=== PATIENT | male | born 1960 | race Caucasian/White ===

== ENCOUNTER 2017-11-26 21:58 | Inpatient (IN) | END 2017-12-07 15:45 | disposition home health service (06) | DRG 57 ==

== ENCOUNTER 2018-02-27 00:30 | Observation (INO) | END 2018-03-02 16:39 | disposition home or self-care (01) ==

== ENCOUNTER 2018-06-15 05:54 | Inpatient (IN) | payer OTHER ==
[~2018-06-15] VITALS: Ht 175.3 cm; Wt 91.0 kg
[2018-06-15] VITALS (7 sets, daily range): BP systolic 111–136; BP diastolic 63–77; PULSE 59–74; RESP 18; Ht 175.3 cm; Wt 91.0 kg
[~2018-06-15 05:54] MED LIST: AMLO-147 PO; ATOR20TA38 PO; COU10 PO; ENOX100D2 SC; LISI10TA2 PO
--- NOTE | 2018-06-15 06:36 | ERD ---
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 Pain is constant nonradiating and nonexertional and he has difficulty describing it further. He denies previous episodes but does have a history of right MCA stroke, CAD, and descending thoracic aortic aneurysm. Patient denies fevers or chills, no vomiting or diarrhea, no headache or blurry vision, no abdominal pain. ROS All systems reviewed and are negative except as per history of present illness. Medications Home Meds Active Scripts Amlodipine Besylate* (Amlodipine Besylate*) 10 Mg Tablet, 10 MG PO DAILY, #30 TAB Prov:KIRILL MONTGOMERY 03/02/18 Reported Medications Warfarin Sodium* (Coumadin*) 3 Mg Tablet, 3 MG PO ALTERNATE WITH 4MG, TAB 06/15/18 Warfarin Sodium* (Warfarin Sodium*) 4 Mg Tablet, 4 MG PO ALTERNATE WITH 3MG, TAB 06/15/18 Atorvastatin* (Atorvastatin*) 80 Mg Tablet, 80 MG PO QHS, #30 TAB 06/15/18 Discontinued Scripts Warfarin Sodium (Coumadin) 10 Mg Tablet, 7 MG PO DAILY@17, #3 TAB Prov:KIRILL MONTGOMERY 03/02/18 Enoxaparin Sodium (Enoxaparin Sodium) 100 Mg/1 Ml Syringe, 95 MG SC Q12, #2 SYR Prov:KIRILL MONTGOMERY 03/02/18 Atorvastatin Calcium* (Atorvastatin Calcium*) 20 Mg Tablet, 20 MG PO QHS, #30 TAB Prov:KIRILL MONTGOMERY 03/02/18 Lisinopril* (Lisinopril*) 10 Mg Tablet, 10 MG PO DAILY, #30 TAB Prov:KIRILL MONTGOMERY 03/02/18 Allergies Allergies: Coded Allergies: No Known Allergy (Unverified , 06/15/18) PMhx/Soc CAD, hypertension, right MCA stroke with left-sided paresis, a descending thoracic aortic aneurysm, mechanical aortic valve currently anticoagulated with warfarin History of Surgery: Yes (CABG 1995, stents) Anesthesia Reaction: No Hx Neurological Disorder: Yes (intraventricular hemorrahage, stroke) Hx Respiratory Disorders: Yes (aspiration PNA) Hx Cardiac Disorders: Yes (CAD, HLD, DLP) Hx Psychiatric Problems: No Hx Miscellaneous Medical Probl: No Hx Alcohol Use: No Hx Substance Use: No Hx Tobacco Use: No FmHx Family History: No diabetes Physical Exam Vitals Vital Signs Date Temp Pulse Resp B/P (MAP) Pulse Ox O2 O2 Flow FiO2 Time Delivery Rate 06/15/18 96.9 73 20 134/77 100 06:03 (96) Physical Exam Const: No acute distress, afebrile Head: Atraumatic Eyes: Normal Conjunctiva ENT: Normal External Ears, Nose and Mouth. Neck: Full range of motion. No meningismus. Resp: Clear to auscultation bilaterally Cardio: Regular rate and rhythm, no murmurs Abd: Soft, non tender, non distended. Skin: No petechiae or rashes Back: No midline or flank tenderness Ext: No cyanosis, or edema Neur: Awake and alert x3, left upper and lower extremity paresis moving all extremities, pupils equal round reactive to light Psych: Normal Mood and Affect Result Diagram: 06/15/1839 06/15/1839 Results 24 hrs Laboratory Tests Test 06/15/18 06:39 White Blood Count 4.4 10^3/ul Red Blood Count 4.71 10^6/ul Hemoglobin 14.2 g/dl Hematocrit 41.7 % Mean Corpuscular Volume 88.5 fl Mean Corpuscular Hemoglobin 30.1 pg Mean Corpuscular Hemoglobin Concent 34.1 g/dl Red Cell Distribution Width 12.6 % Platelet Count 171 10^3/UL Mean Platelet Volume 8.7 fl Immature Granulocytes % 0.000 % Neutrophils % 61.8 % Lymphocytes % 23.3 % Monocytes % 13.0 % Eosinophils % 1.4 % Basophils % 0.5 % Nucleated Red Blood Cells % 0.0 /100WBC Immature Granulocytes # 0.000 10^3/ul Neutrophils # 2.7 10^3/ul Lymphocytes # 1.0 10^3/ul Monocytes # 0.6 10^3/ul Eosinophils # 0.1 10^3/ul Basophils # 0.0 10^3/ul Nucleated Red Blood Cells # 0.0 10^3/ul Prothrombin Time 24.6 Sec Prothrombin Time Ratio 1.9 INR International Normalized Ratio 2.21 Activated Partial Thromboplast Time 36.6 Sec Sodium Level 135 mmol/L Potassium Level 4.1 mmol/L Chloride Level 96 mmol/L Carbon Dioxide Level 32 mmol/L Anion Gap 7 Blood Urea Nitrogen 13 mg/dl Creatinine 0.86 mg/dl Est Glomerular Filtrat Rate mL/min > 60 mL/min Glucose Level 105 mg/dl Calcium Level 9.0 mg/dl Total Bilirubin 0.5 mg/dl Direct Bilirubin 0.00 mg/dl Indirect Bilirubin 0.5 mg/dl Aspartate Amino Transf (AST/SGOT) 32 IU/L Alanine Aminotransferase (ALT/SGPT) 45 IU/L Alkaline Phosphatase 69 IU/L Troponin I < 0.012 ng/ml Total Protein 7.8 g/dl Albumin 4.4 g/dl Globulin 3.40 g/dl Albumin/Globulin Ratio 1.29 Lipase 83 U/L Current Medications Medications Dose Sig/Vincent Start Time Status Last (Trade) Ordered Route PRN Stop Time Admin Dose Reason Admin Sodium 1,000 ml @ Q1H STAT 06/15/18 DC 06/15/18 Chloride 1,000 mls/hr IV 06:40 07:20 06/15/18 07:39 Morphine 4 mg ONCE STAT 06/15/18 DC Sulfate IV 06:40 (morphine) 06/15/18 06:55 Ondansetron 4 mg ONCE STAT 06/15/18 DC HCl (Zofran IV 06:40 Inj) 06/15/18 06:55 IV Flush 10 ml STK-MED 06/15/18 DC 06/15/18 (NS 10 ml) ONCE .ROUTE 07:40 08:06 06/15/18 07:41 Sodium 100 ml @ ud STK-MED 06/15/18 DC 06/15/18 Chloride ONCE .ROUTE 07:40 08:06 06/15/18 07:41 Iohexol 100 ml @ ud STK-MED 06/15/18 DC 06/15/18 ONCE .ROUTE 07:40 08:07 06/15/18 07:41 Procedures/MDM IV line was established patient was placed on hall monitor rhythm strip revealed a sinus rhythm at about 70 bpm with upright P and T waves. Patient was afebrile EKG performed, read by me revealed a normal sinus rhythm at 65 bpm, left axis deviation, first-degree AV block, right ventricular conduction delay QRS duration 116 ms, no concerning ST elevations or depressions noted. I administered 1 L normal saline IV, morphine 4 mg IV, Zofran 4 mg IV Chest X-ray 1V Interpreted by me: Soft Tissue: No acute abnormalities Bones: No acute abnormalities Mediastinum/Cardiac Silhouette/Lungs: No acute abnormalities CT scan of the chest with IV contrast was performed, IMPRESSION: 1. Aneurysmal dilatation of the ascending thoracic aorta, maximal diameter 5.9 cm proximal to the origin of the right brachial cephalic artery. Tapered narrowing of the aorta at the arch which measures 3.2 cm diameter. No significant dilatation of the descending aorta. 2. Negative for dissection. 3. Moderate burden atherosclerotic plaque at the aortic arch. 4. Mild cardiomegaly. Heterogeneous ground-glass density in the bilateral lower lobes may indicate mild edema. CBC and electrolytes were normal, liver function tests were normal, troponin was negative Patient will be admitted to telemetry setting for continued medical management and cardiology consultation Departure Diagnosis: Primary Impression: Chest pain Chest pain type: unspecified Qualified Codes: R07.9 - Chest pain, unspecified Additional Impression: Thoracic aortic aneurysm Presence of rupture: without rupture Qualified Codes: I71.2 - Thoracic aortic aneurysm, without rupture Condition: CHAD Cadet MD Jun 15, 2018 06:36
[2018-06-15] MEDS ORDERED: ONDANSETRON 4 MG INJ IV STA (06:40)
[2018-06-15] MEDS ORDERED: morphine 4 MG/ML VIAL IV STA (06:40)
[2018-06-15] MEDS ORDERED: SOD CHLORIDE 0.9% 1,000 ML IV STA (06:40)
[2018-06-15] MEDS ORDERED: ATOR-2 PO (07:25)
[2018-06-15] MEDS ORDERED: WARF4TAB64 PO (07:26)
[2018-06-15] MEDS ORDERED: WARF3TAB PO (07:27)
[2018-06-15] MEDS ORDERED: SOD CHLORIDE 0.9% 100 ML ONE (07:40)
[2018-06-15] MEDS ORDERED: IOHEXOL 100 ML ONE (07:40)
--- NOTE | 2018-06-15 08:08 | NUR ---
Procedure Ordered:CTA CHEST Reason for Exam Today:THORACIC AORTIC ANEURYSM Previous Exams: Allergies:NKDA Current Medications Taken: Glucophage ( ) Metformin ( ) Previous reaction to contrast media: Yes ( ) No ( X) : Yes ( ) No (X ) Asthma: Yes ( ) No (X ) Diabetes: Yes ( ) No (X ) Myeloma: Yes ( ) No ( X) Heart Disease: Yes ( X) No ( ) Cardiac Disease: Yes ( X) No ( ) Kidney Disease: Yes ( ) No ( X) Vascular Disease: Yes ( X) No ( ) Patient Teaching done: Yes ( ) No ( ) Pump Service Supervisor Used: Yes ( ) No ( ) Name of Pump Service Supervisor: Language Used: As part of the test requested by your doctor, contrast media may be injected into your vein while the x-rays are being taken. Occasionally, reactions from IV contrast may occur. The physician and staff of this hospital are trained to treat these reactions. Select the type of Contrast that will be given to patient: Isovue 300 ( ) Isovue 370 ( ) Visipaque ( ) Cystografin ( ) OMNIPAQUE 350 (X) Gastrographin ( ) Redi-cat ( ) Volumen ( ) Amount of contrast to be given: 100CC IV (X ) PO ( ) Date given:06/15/18 Lab Values: BUN: 13 Creatinine:0.86 Reason why contrast cannot be given: Location of patient pre-procedure:[facility] 18 Location of patient post procedure:[facility] 18 PT TOLERATED IV CONTRAST INJECTION WELL
--- NOTE | 2018-06-15 11:43 | HP ---
Date/Time of Note Date/Time of Note DATE: 06/15/18 TIME: 11:43 Assessment/Plan VTE Prophylaxis Pharmacological prophylaxis: warfarin tx Lines/Catheters IV Catheter Type (from [facility]): [facility] Assessment/Plan Hospital Course 58-year-old male with past medical history of aortic valve replacement, dyslipidemia, hypertension, right MCA infarct with right frontal lobe hemorrhage, and ascending aortic aneurysm who came to the emergency room with chief complaint of chest pain, who will be admitted to inpatient setting for further treatment and evaluation. 1. Chest pain. -Will rule out ACS. -Ruled out for any aortic dissection. -Continue anticoagulation with Coumadin. -Await cardiology evaluation. 2. Status post mechanical aortic valve replacement. -INR therapeutic. -Continue Coumadin. 3. Ascending thoracic aortic aneurysm. -Continue optimal blood pressure control. 4. S/P right MCA territory stroke. -Continue statins. 5. Hypertension. -Continue antihypertensives. 6. Obesity. -BMI greater than 32 kg/m. -Will advise weight reduction. Plan: The patient will be admitted to inpatient telemetry floor. The patient will be started on a low-cholesterol diet. The patient will remain a full code. Activities will be as tolerated. The rest of the patient's management will be based on the clinical course, inputs from consultants, and the results of diagnostic studies. Based on the patient's clinical presentation, he most probably requires at least 1 midnight's stay for further management and evaluation of his clinical presentation. The patient was seen in collaboration with Dr. Lanza. Result Diagram: 06/15/18 0639 06/15/18 0639 Results 24hrs Laboratory Tests Test 06/15/18 06:39 White Blood Count 4.4 L Red Blood Count 4.71 Hemoglobin 14.2 Hematocrit 41.7 L Mean Corpuscular Volume 88.5 Mean Corpuscular Hemoglobin 30.1 Mean Corpuscular Hemoglobin Concent 34.1 Red Cell Distribution Width 12.6 Platelet Count 171 Mean Platelet Volume 8.7 Immature Granulocytes % 0.000 L Neutrophils % 61.8 Lymphocytes % 23.3 Monocytes % 13.0 H Eosinophils % 1.4 Basophils % 0.5 Nucleated Red Blood Cells % 0.0 Immature Granulocytes # 0.000 Neutrophils # 2.7 Lymphocytes # 1.0 Monocytes # 0.6 Eosinophils # 0.1 Basophils # 0.0 Nucleated Red Blood Cells # 0.0 Prothrombin Time 24.6 H Prothrombin Time Ratio 1.9 INR International Normalized Ratio 2.21 Activated Partial Thromboplast Time 36.6 H Sodium Level 135 Potassium Level 4.1 Chloride Level 96 L Carbon Dioxide Level 32 H Anion Gap 7 Blood Urea Nitrogen 13 Creatinine 0.86 Est Glomerular Filtrat Rate mL/min > 60 Glucose Level 105 Calcium Level 9.0 Total Bilirubin 0.5 Direct Bilirubin 0.00 Indirect Bilirubin 0.5 Aspartate Amino Transf (AST/SGOT) 32 Alanine Aminotransferase (ALT/SGPT) 45 Alkaline Phosphatase 69 Troponin I < 0.012 Total Protein 7.8 Albumin 4.4 Globulin 3.40 H Albumin/Globulin Ratio 1.29 Lipase 83 HPI/ROS Admit Date/Time Admit Date/Time Hx of Present Illness This is a 58-year-old male with past medical history of aortic valve replacement, dyslipidemia, essential hypertension, right MCA infarct with right frontal lobe hemorrhage, and ascending aortic aneurysm, who came to the emergency room with chief complaint of chest pain. The patient relates that the pain woke him up from sleep at 4 AM in the morning. The patient verbalized the pain as substernal with no radiation. The patient rated the pain as 5/10. There was no associated diaphoresis. The patient was complaining of palpitations. The patient denied any dyspnea. The patient denied any fevers, chills, or cough. The patient verbalized that he has been compliant with all his medications. The patient recently had a left heart catheterization at [facility] by . The patient also follows up with her DrJudith Danielle apparently for his aortic aneurysm. In the emergency room, the patient's initial troponins were negative. The patient's chest x-ray was essentially negative. The patient underwent a CT chest angiogram that was negative for any dissection. However, it showed aneurysmal dilation of the ascending thoracic aorta with maximal diameter of 5.9 cm. ROS Constitutional: no complaints Eyes: no complaints ENT: no complaints Respiratory: no complaints Cardiovascular: chest pain, palpitations Gastrointestinal: no complaints Genitourinary: no complaints Musculoskeletal: no complaints Skin: no complaints Neurologic: no complaints Endocrine: no complaints Lymphatic: no complaints Psychological: no complaints Immunologic: no complaints PMH/Family/Social Past Medical History 1. Right MCA infarct with right frontal lobe hemorrhage. 2. Dyslipidemia. 3. Hypertension. 4. Ascending aortic aneurysm. Coded Allergies: No Known Allergy (Unverified , 06/15/18) Past Surgical History 1. Aortic valve replacement with open heart surgery. 2. Percutaneous coronary intervention with stent placement. Family History Significant Family History: no pertinent family hx Social History Alcohol Use: none Smoking Status: Never smoker Drug Use: none Exam/Review of Systems Vital Signs Vitals Vital Signs Date Temp Pulse Resp B/P (MAP) Pulse Ox O2 O2 Flow FiO2 Time Delivery Rate 06/15/18 97.0 59 20 104/65 100 Room Air 09:15 (78) Exam Exam General: Obese, 58 year-old male lying in bed in no apparent distress. HEENT: Normocephalic, atraumatic. Eyes: Anicteric sclerae, conjunctivae clear. ENT: Nasal septum midline, oral mucosa moist. Neck supple. Respiratory: Bilaterally clear breath sounds. No use of accessory muscles of respiration. No adventitious breath sounds. Cardiovascular: S1, S2 heard. Regular rate and rhythm. Audible click from mechanical valve. Abdomen: Soft, nontender, and nondistended. Bowel sounds positive in all 4 quadrants. Genitourinary: Deferred. Extremities: No cyanosis, no clubbing, no edema. Peripheral pulses palpable. Neurologic: Cranial nerves II through XII grossly intact. The patient is awake, alert, and oriented. Skin: Normal skin turgor. No skin rashes. Additional Comments CTPA IMPRESSION: 1. Aneurysmal dilatation of the ascending thoracic aorta, maximal diameter 5.9 cm proximal to the origin of the right brachial cephalic artery. Tapered narrowing of the aorta at the arch which measures 3.2 cm diameter. No significant dilatation of the descending aorta. 2. Negative for dissection. 3. Moderate burden atherosclerotic plaque at the aortic arch. 4. Mild cardiomegaly. Heterogeneous ground-glass density in the bilateral lower lobes may indicate mild edema. DIANA RIVERA NP Jun 15, 2018 11:43
[2018-06-15] MEDS ORDERED: ACETAMINOPHEN 325 MG TAB PO PRN (12:30)
[2018-06-15] MEDS ORDERED: NACL 0.9% 3 ML SYG IV SCH (12:30)
[2018-06-15] MEDS ORDERED: HYDROCODONE/APAP (5/325) TAB PO PRN (12:30)
[2018-06-15] MEDS ORDERED: ONDANSETRON 4 MG INJ IV PRN (12:30)
--- NOTE | 2018-06-15 13:01 | CONS ---
Assessment/Plan Assessment/Plan Assessment/Plan Con't r/o Mi protocol - add asa 81 - ECHO to follow. # [id number] Result Diagram: 06/15/18 0639 06/15/18 0639 Results 24hrs Laboratory Tests Test 06/15/18 06:39 White Blood Count 4.4 L Red Blood Count 4.71 Hemoglobin 14.2 Hematocrit 41.7 L Mean Corpuscular Volume 88.5 Mean Corpuscular Hemoglobin 30.1 Mean Corpuscular Hemoglobin Concent 34.1 Red Cell Distribution Width 12.6 Platelet Count 171 Mean Platelet Volume 8.7 Immature Granulocytes % 0.000 L Neutrophils % 61.8 Lymphocytes % 23.3 Monocytes % 13.0 H Eosinophils % 1.4 Basophils % 0.5 Nucleated Red Blood Cells % 0.0 Immature Granulocytes # 0.000 Neutrophils # 2.7 Lymphocytes # 1.0 Monocytes # 0.6 Eosinophils # 0.1 Basophils # 0.0 Nucleated Red Blood Cells # 0.0 Prothrombin Time 24.6 H Prothrombin Time Ratio 1.9 INR International Normalized Ratio 2.21 Activated Partial Thromboplast Time 36.6 H Sodium Level 135 Potassium Level 4.1 Chloride Level 96 L Carbon Dioxide Level 32 H Anion Gap 7 Blood Urea Nitrogen 13 Creatinine 0.86 Est Glomerular Filtrat Rate mL/min > 60 Glucose Level 105 Calcium Level 9.0 Total Bilirubin 0.5 Direct Bilirubin 0.00 Indirect Bilirubin 0.5 Aspartate Amino Transf (AST/SGOT) 32 Alanine Aminotransferase (ALT/SGPT) 45 Alkaline Phosphatase 69 Troponin I < 0.012 Total Protein 7.8 Albumin 4.4 Globulin 3.40 H Albumin/Globulin Ratio 1.29 Lipase 83 Consultation Date/Type/Reason Admit Date/Time Initial Consult Date Exam/Review of Systems Vital Signs Vitals Vital Signs Date Temp Pulse Resp B/P (MAP) Pulse Ox O2 O2 Flow FiO2 Time Delivery Rate 06/15/18 71 16 118/87 100 Room Air 12:52 (97) 06/15/18 97.0 09:15 Medications Medications Current Medications IV Flush (NS 3 ml) 3 ml PER PROTOCOL IV ; Start 06/15/18 at 12:30 Ondansetron HCl (Zofran Inj) 4 mg Q6H PRN IV NAUSEA AND/OR VOMITING; Start 06/15/18 at 12:30 Acetaminophen (Tylenol Tab) 650 mg Q6H PRN PO PAIN LEVEL 1-3 OR FEVER; Start 06/15/18 at 12:30 Acetaminophen/ Hydrocodone Bitart ([place] (5/325)) 1 tab Q6H PRN PO PAIN LEVEL 4-6; Start 06/15/18 at 12:30 Amlodipine Besylate (Norvasc) 10 mg DAILY PO ; Start 06/16/18 at 09:00; Status UNV Atorvastatin Calcium (Lipitor) 80 mg QHS PO ; Start 06/15/18 at 21:00; Status UNV Warfarin Sodium (Coumadin) 3 mg DAILY@17 PO ; Start 06/15/18 at 17:00; Status UNV Date/Time of Note Date/Time of Note DATE: 06/15/18 TIME: 13:01 DIEUDONNE GOLD MD Jun 15, 2018 13:01
[2018-06-15] MEDS ORDERED: ASPIRIN (EC) 81 MG TAB PO ONE (13:30)
[2018-06-15] MEDS ORDERED: **FLU VACCINE PREVIOUSLY DISPENSED XX PRN (15:30)
[2018-06-15] MEDS: WARFARIN 3 MG TAB PO SCH (16:49)
--- NOTE | 2018-06-15 19:00 | NUR ---
dr liang wants a copy of the report of the left heart cath of patient done in [facility] last apr 2018..authorization to obtain med records signed by patient and faxed to [facility].
[2018-06-15] MEDS ORDERED: ATORVASTATIN 80 MG TAB PO SCH (21:00)
[2018-06-16] VITALS (9 sets, daily range): BP systolic 107–125; BP diastolic 64–77; PULSE 53–73; RESP 18–20
--- NOTE | 2018-06-16 07:07 | NUR ---
EOSS: No acute event overnight. Patient slept well. Denies any chest pain overnight. Waiting for Cardiac cath report from [facility]. Will endorse to f/u.
--- NOTE | 2018-06-16 08:37 | CONS ---
DATE OF ADMISSION: 06/15/2018 DATE OF CONSULTATION: 06/15/2018 TYPE OF CONSULTATION: Cardiology. REFERRING PHYSICIANS: Emigdio Jackson MD REASON FOR EVALUATION: Precordial chest pain. HISTORY OF PRESENT ILLNESS: Mr. Bowen is a 58-year-old gentleman with history of dyslipidemia, hist ory of coronary artery disease, prior history of coronary stenting, history of right MCA infarct with right frontal lobe hemorrhage. Also, history of aneurysm of descending aorta, as well as mitral sima ve replacement, mechanical, on anticoagulation, comes in the hospital for chest pain. When asked the patient if he had a history of precordial chest pain, the patient had similar presentation about a m onth ago according to him, he was seen at [facility]. He was seen there by . The patient said that he had a stress test done at this particular time, but he does not recall if it was not normal or abnormal. The patient's EKG here is normal with nonspecific ST changes. He shaun ears to be hemodynamically stable. I think for now, continue to rule out protocol for acute my ocardial infarction. We will try to obtain results from his stress test and continue Coumadin for an ticoagulation. PAST MEDICAL HISTORY: History of aortic aneurysm, diffuse coronary artery disease, prior history of stenting. History of right middle cerebral artery territory CVA, hemorrhagic history of hypertension , history of obesity, history on Coumadin, history of coronary artery disease with recent stres s test [facility]. ALLERGIES: No known drug allergies. SOCIAL HISTORY: Does not smoke, does not drink, does not do any drugs. FAMILY HISTORY: Negative for sudden cardiac or premature coronary artery disease. MEDICATIONS: Here with: 1. Amlodipine 10 mg once a day. 2. Atorvastatin 80 mg a day. 3. Warfarin 3 mg p.o. once a day. 4. Aspirin. 5. Hydrocodone. REVIEW OF SYSTEMS: CONSTITUTIONAL: No fevers, no chills. Chest pain as described. HEENT: No changes in vision or hearing. CARDIAC: Chest pain reported, but not at this moment. RESPIRATORY: Short of breath, acute on chronic. GASTROINTESTINAL: No nausea, vomiting. GENITOURINARY: No dysuria, hematuria. NEUROLOGIC: Prior history of CVA. PSYCHIATRIC: Possible history of anxiety. PHYSICAL EXAMINATION: VITAL SIGNS: Temperature is 97.0, heart rate 71, blood pressure 118/87. GENERAL: He is , he is aware of his condition. HEAD: Normocephalic, atraumatic. Eyes anicteric. NECK: Supple. JVD 6 cm. No lymphadenopathy. HEART: Regular. He has a soft 1/6 midsternal murmur. He also has a mechanical click. LUNGS: Coarse at the base. ABDOMEN: Distended, bowel sounds are present. There is no hepatosplenomegaly. EXTREMITIES: Show no clubbing, cyanosis. Trace edema. He is paralyzed on the left side. ECG read by me shows sinus rhythm with some nonspecific ST-T changes. LABORATORY DATA: White blood cell count 4.4, hemoglobin is 14.2, platelets 171. INR is 2.2. Sodium 135, potassium 4.1, BUN 15, creatinine 0.8. First troponin negative at 0.012. ASSESSMENT AND PLAN: Precordial chest pain. Has a history of coronary artery disease and prior sten ting. I am not sure when the last stent was put in. The patient will need aspirin Plavix, whi ch is not correct. We are going to initiate patient on aspirin right now and see if Plavix might be an option based on his neurologic evaluation and dilation of the aortic aneurysm. 1. Aortic aneurysm. Dr. Danielle will follow and defer to primary. CT angiogram was negative for dissection; however hypertension blood pressure well optimized. Continue to adjust medications as ne eded. 2. Aortic valve replacement, mechanical, on Coumadin now. INR goal is greater than 2.5. 3. Anemia. Hemoglobin is fairly stable, no evidence of ischemia now. 4. Heart failure. Patient with history of diastolic heart failure. Continue to follow. Dictated By: DIEUDONNE GOLD MD ML/NTS Conf#: [id number] DID#: [id number] CC: CESAR VAN MD;*EndCC*
[2018-06-16] MEDS ORDERED: AMLODIPINE 10 MG TAB PO SCH (09:00)
--- NOTE | 2018-06-16 12:12 | CONS ---
Assessment/Plan Assessment/Plan Hospital Course (Demo Recall) Imp: 1.Chest pain-neg trop x 3. No current chest pain. s/p LHC 05/21 with no sig cad 2.H/O AVR-bioprosthesis 3.H/O aortic aneurysm 4.HTN 5.Bradycardia-to 50's Recc: -Tele -Continue norvasc -Contineu statin -Follow INR and continue coumadin -Check TSH -Needs CT surgical eval of aneurysm which may already be going on as outpatient -OK for d/c from cardiac standpoint with ongoing eval of aneurysm Consultation Date/Type/Reason Admit Date/Time Jun 15, 2018 at 09:20 Initial Consult Date 06/15/2018 Type of Consult Cardiology Reason for Consultation chest pain Requesting Provider: EDGAR GU MD Date/Time of Note DATE: 06/16/18 TIME: 12:03 Exam/Review of Systems Vital Signs Vitals Vital Signs Date Temp Pulse Resp B/P (MAP) Pulse Ox O2 O2 Flow FiO2 Time Delivery Rate 06/16/18 97.3 53 18 123/64 97 11:20 (83) 06/16/18 Room Air 03:47 Intake and Output 06/15/18 06/15/18 06/16/18 1414:59 22:59 06:59 IntakeIntake Total 1240 ml 245 ml OutputOutput Total 750 ml 601 ml BalanceBalance -750 ml 1240 ml -356 ml Exam Exam Review of Systems: CONSTITUTIONAL: No fevers, chills. PULMONARY: No sob CARDIOVASCULAR: No current chest pain GASTROINTESTINAL: No nausea/vomiting. GENITOURINARY: No hematuria/dysuria. MUSCULOSKELETAL: No myagias/arthalgias. PSYCHIATRIC: The patient denies depression. NEUROLOGIC: No weakness Constitutional: alert, oriented Psych: no complaints Head: normocephalic ENMT: mucosa pink and moist Neck: supple, jvd (8 cm wter) Respiratory: clear to auscultation Cardiovascular: regular rate and rhythm Gastrointestinal: soft, non-tender Musculoskeletal: muscle tone (normal) Extremities: edema (none) Neurological: other (No focal deficits) Labs Result Diagram: 06/16/18 0516 06/16/18 0515 Results 24hrs Laboratory Tests Test 06/15/18 12:40 06/15/18 18:51 06/16/18 00:28 06/16/18 05:15 Hemoglobin A1c 5.3 Creatine Kinase 86 72 65 Creatine Kinase 1.2 1.1 1.2 Index Creatinine Kinase MB 1.07 0.82 0.79 (Mass) Troponin I < 0.012 < 0.012 < 0.012 B-Type Natriuretic 105 Peptide Sodium Level 140 Potassium Level 4.6 Chloride Level 101 Carbon Dioxide Level 27 Anion Gap 12 Blood Urea Nitrogen 15 Creatinine 0.78 Est Glomerular > 60 Filtrat Rate mL/min Glucose Level 95 Calcium Level 8.9 Total Bilirubin 0.5 Direct Bilirubin 0.00 Indirect Bilirubin 0.5 Aspartate Amino 26 Transf (AST/SGOT) Alanine 40 Aminotransferase (AL T/SGPT) Alkaline Phosphatase 64 Total Protein 6.8 # Albumin 3.8 Globulin 3.00 Albumin/Globulin 1.26 Ratio Test 06/16/18 05:16 06/16/18 09:39 White Blood Count 4.3 L Red Blood Count 4.61 L Hemoglobin 13.9 L Hematocrit 40.8 L Mean Corpuscular 88.5 Volume Mean Corpuscular 30.2 Hemoglobin Mean Corpuscular 34.1 Hemoglobin Concent Red Cell 12.9 Distribution Width Platelet Count 166 Mean Platelet Volume 8.7 Immature 0.200 Granulocytes % Neutrophils % 57.4 Lymphocytes % 28.3 Monocytes % 11.7 H Eosinophils % 1.9 Basophils % 0.5 Nucleated Red Blood 0.0 Cells % Immature 0.010 Granulocytes # Neutrophils # 2.5 Lymphocytes # 1.2 Monocytes # 0.5 Eosinophils # 0.1 Basophils # 0.0 Nucleated Red Blood 0.0 Cells # Phosphorus Level 3.4 Magnesium Level 2.1 Creatine Kinase 58 Creatine Kinase 0.9 Index Creatinine Kinase MB 0.54 (Mass) Troponin I < 0.012 Triglycerides Level 77 Cholesterol Level 87 L LDL Cholesterol, 30 Calculated HDL Cholesterol 42 Cholesterol/HDL 2.0 Ratio Prothrombin Time 22.1 H Prothrombin Time 1.7 Ratio INR International 1.93 Normalized Ratio CHOCO HALL Jun 16, 2018 12:12
--- NOTE | 2018-06-16 14:54 | PDOCDIS ---
Discharge Instructions CONDITION [id number] Patient Condition: [id number] Stable HOME CARE INSTRUCTIONS: [id number] Diet Instructions: [id number] Low Fat /Cholesterol FOLLOW UP/APPOINTMENTS Follow-up Plan Sanket Pichardo MD Specialty: Cardiology Office Address [address] [address] [place] [id number] Office OTHER ORDERS: Other Orders: 1. Resume home medications. 2. Follow a low-cholesterol diet. 3. Follow-up with your microbiological laboratory technician as scheduled. 4. Resume activities as tolerated. 5. Please go to the nearest emergency room if you have any chest pain, significant shortness of breath, or any other unusual signs/symptoms. DIANA RIVERA NP Jun 16, 2018 14:54
--- NOTE | 2018-06-16 15:15 | DS ---
Date/Time of Note Date/Time of Note DATE: 06/16/18 TIME: 15:13 Discharge Summary Admission/Discharge Info Admit Date/Time Jun 15, 2018 at 09:20 Discharge Date/Time Discharge Diagnosis 1. Chest pain. ACS ruled out. 2. Status post mechanical aortic valve replacement. 3. Ascending thoracic aortic aneurysm. 4. Status post right MCA territory stroke. 5. Essential hypertension. 6. Obesity. Patient Condition: Stable Consults 1. Jeovany Marshall MD, Cardiology. 2. Lavelle Garcia MD, Cardiology. Procedures CTA Chest IMPRESSION: 1. Aneurysmal dilatation of the ascending thoracic aorta, maximal diameter 5.9 cm proximal to the origin of the right brachial cephalic artery. Tapered narrowing of the aorta at the arch which measures 3.2 cm diameter. No significant dilatation of the descending aorta. 2. Negative for dissection. 3. Moderate burden atherosclerotic plaque at the aortic arch. 4. Mild cardiomegaly. Hx of Present Illness This is a 58-year-old male with past medical history of aortic valve replacement, dyslipidemia, essential hypertension, right MCA infarct with right frontal lobe hemorrhage, and ascending aortic aneurysm, who came to the emergency room with chief complaint of chest pain. The patient relates that the pain woke him up from sleep at 4 AM in the morning. The patient verbalized the pain as substernal with no radiation. The patient rated the pain as 5/10. There was no associated diaphoresis. The patient was complaining of palpitations. The patient denied any dyspnea. The patient denied any fevers, chills, or cough. The patient verbalized that he has been compliant with all his medications. The patient recently had a left heart catheterization at [facility] by . In the emergency room, the patient's initial troponins were negative. The patient's chest x-ray was essentially negative. The patient underwent a CT chest angiogram that was negative for any dissection. However, it showed aneurysmal dilation of the ascending thoracic aorta with maximal diameter of 5.9 cm. Hospital Course The patient was admitted to inpatient setting. The patient's serial troponins remained negative. A 2D echocardiogram was done. Official results are pending at this time. The patient had a recent left heart catheterization at an outside hospital. This was obtained from the outside hospital and evaluation of this did not show any evidence of significant coronary artery disease. Therefore, th e patient's chest pain is most probably atypical in origin. The patient is stable to be discharged home. 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 The patient is on Coumadin. The patient was on Coumadin with therapeutic INR. The patient also has a history of ascending thoracic aortic aneurysm. The patient is being followed as outpatient for a eventual repair of this. The patient has history of right MCA territory stroke. The patient was on statins. The patient is already on Coumadin for anticoagulation. Therefore, the patient was not ma intain on any aspirin, which can increase the risk for bleeding. The patient was on antihypertensives for his underlying hypertension. The patient had a stable hospital course. The patient was cleared by cardiology to be discharged home. Discharge Instructions 1. Resume home medications. 2. Follow a low-cholesterol diet. 3. Follow-up with your technology manager as scheduled. 4. Resume activities as tolerated. 5. Please go to the nearest emergency room if you have any chest pain, sig nificant shortness of breath, or any other unusual signs/symptoms. The patient verbalized understanding of his discharge instructions. At this time I would like to thank all the consultants for seeing the patient and providing clinical recommendations. The patient was seen in collaboration with Dr. Lanza. Home Meds Active Scripts Amlodipine Besylate* (Amlodipine Besylate*) 10 Mg Tablet, 10 MG PO DAILY, #30 TAB Prov:KIRILL MONTGOMERY 03/02/18 Reported Medications Warfarin Sodium* (Coumadin*) 3 Mg Tablet, 3 MG PO ALTERNATE WITH 4MG, TAB 06/15/18 Warfarin Sodium* (Warfarin Sodium*) 4 Mg Tablet, 4 MG PO ALTERNATE WITH 3MG, TAB 06/15/18 Atorvastatin* (Atorvastatin*) 80 Mg Tablet, 80 MG PO QHS, #30 TAB 06/15/18 Discontinued Scripts Warfarin Sodium (Coumadin) 10 Mg Tablet, 7 MG PO DAILY@17, #3 TAB Prov:KIRILL MONTGOMERY 03/02/18 Enoxaparin Sodium (Enoxaparin Sodium) 100 Mg/1 Ml Syringe, 95 MG SC Q12, #2 SYR Prov:KIRILL MONTGOMERY 03/02/18 Atorvastatin Calcium* (Atorvastatin Calcium*) 20 Mg Tablet, 20 MG PO QHS, #30 TAB Prov:KIRILL MONTGOMERY 03/02/18 Lisinopril* (Lisinopril*) 10 Mg Tablet, 10 MG PO DAILY, #30 TAB Prov:KIRILL MONTGOMERY 03/02/18 Follow-up Plan Sanket Pichardo MD Specialty: Cardiology Office Address [address] [place] [address]. [address] [place] [address] Office Primary Care Provider Mendel Desouza MD Time spent on discharge: > 30 minutes Pending Labs Laboratory Tests Test 06/15/18 18:51 06/16/18 00:28 06/16/18 05:15 06/16/18 05:16 Creatine 72 65 58 Kinase IU/L (23-200) IU/L (23-200) IU/L (23-200) Creatine Kinase 1.1 1.2 0.9 Index Creatinine 0.82 0.79 0.54 Kinase MB ng/ml (0.0-2.4) ng/ml (0.0-2.4 ng/ml (0.0-2.4 (Mass) ) ) Troponin I < 0.012 < 0.012 < 0.012 ng/ml (0.000-0. ng/ml (0.000-0 ng/ml (0.000-0 120) .120) .120) Sodium Level 140 mmol/L (135-14 4) Potassium 4.6 Level mmol/L (3.5-5. 1) Chloride Level 101 mmol/L (97-110 ) Carbon Dioxide 27 Level mmol/L (21-31) Anion Gap 12 (5-13) Blood Urea 15 Nitrogen mg/dl (7-20) Creatinine 0.78 mg/dl (0.61-1. 24) Est Glomerular > 60 Filtrat mL/min (>60) Rate mL/min Glucose Level 95 mg/dl (70-220) Calcium Level 8.9 mg/dl (8.4-10. 2) Total 0.5 Bilirubin mg/dl (0.2-1.3 ) Direct 0.00 Bilirubin mg/dl (0.00-0. 20) Indirect 0.5 Bilirubin mg/dl (0-1.1) Aspartate Amino 26 Transf (AST/SGO IU/L (15-46) T) Alanine 40 Aminotransferas IU/L (13-69) e (ALT/SGPT) Alkaline 64 Phosphatase IU/L (42-121) Total Protein 6.8 g/dl (6.1-8.1) Albumin 3.8 g/dl (3.3-4.9) Globulin 3.00 g/dl (1.3-3.2) Albumin/Globuli 1.26 n Ratio White Blood 4.3 Count 10^3/ul (4.8-1 0.8) Red Blood 4.61 Count 10^6/ul (4.70- 6.10) Hemoglobin 13.9 g/dl (14.0-18. 0) Hematocrit 40.8 % (42.0-52.0) Mean 88.5 Corpuscular fl (82.0-101.0 Volume ) Mean 30.2 Corpuscular pg (29.0-33.0) Hemoglobin Mean 34.1 Corpuscular g/dl (32.0-37. Hemoglobin Conc 0) ent Red Cell 12.9 Distribution % (11.5-14.5) Width Platelet Count 166 10^3/UL (140-4 15) Mean Platelet 8.7 Volume fl (7.4-10.4) Immature 0.200 Granulocytes % % (0.001-0.429 ) Neutrophils % 57.4 % (39.0-77.0) Lymphocytes % 28.3 % (15.0-51.0) Monocytes % 11.7 % (0.0-11.0) Eosinophils % 1.9 % (0.0-7.0) Basophils % 0.5 % (0.0-2.0) Nucleated Red 0.0 Blood Cells % /100WBC (0.0-0 .0) Immature 0.010 Granulocytes # 10^3/ul (0.0-0 .031) Neutrophils # 2.5 10^3/ul (1.6-7 .5) Lymphocytes # 1.2 10^3/ul (0.8-2 .9) Monocytes # 0.5 10^3/ul (0.3-0 .9) Eosinophils # 0.1 10^3/ul (0.0-0 .5) Basophils # 0.0 10^3/ul (0.0-0 .1) Nucleated Red 0.0 Blood Cells # 10^3/ul (0.0-0 .0) Phosphorus 3.4 Level mg/dl (2.5-4.9 ) Magnesium 2.1 Level mg/dl (1.7-2.5 ) Triglycerides 77 Level mg/dl (0-149) Cholesterol 87 Level mg/dl (100-200 ) LDL 30 mg/dl Cholesterol, Calculated HDL 42 Cholesterol mg/dl (28-71) Cholesterol/HDL 2.0 RATIO Ratio Test 06/16/18 09:39 Prothrombin 22.1 Time Sec (11.9-14.9) Prothrombin 1.7 Time Ratio INR 1.93 International Normalized Rati DIANA Florentino NP Jun 16, 2018 15:15
--- NOTE | 2018-06-16 16:16 | RADRPT ---
Echocardiogram Report Patient Name: LALY WRIGHT Gender: Male Date: 1960 Study Date: 15-Jun-2018 Area Attendant: Kyle Luke [facility] Location: [address] Ref. Physician: DIEUDONNE GOLD Quality: Adequate Procedures: Transthoracic echocardiogram with complete 2D, M-Mode, and doppler examination. Indications: Chest Pain. 2D/M Mode Doppler Measurement Value Normal Ranges Measurement Value Normal Ranges LVIDd 2D 4.7 3.5 - 5.6 cm AV Mean Cohng 2.2 m/sec LVIDs 2D 3.2 2.1 - 4.1 cm AV Mean PG 21.0 mmHg LVPWd 2D 1.2 0.6 - 1.1 cm AV VTI 70.2 cm IVSd 2D 1.2 0.6 - 1.1 cm LVOT Peak Chong 0.6 m/sec AoR Diam 2D 2.9 2.0 - 3.7 cm LVOT Peak PG 2.0 mmHg LA/Ao 2D 1 0 - 1 MV E Peak Chong 1.1 m/sec LA Dimen 2D 3.5 2.3 - 4.0 cm MV A Peak Chong 0.8 m/sec MV E/A 1.4 MV Decel Time 204 msec Lat E` Chong 0.1 m/sec Lateral E/E` 8.6 Med E` Chong 0.1 m/sec MV E/A 1.4 TR Peak Chong 3.0 m/sec TR Peak PG 35.0 mmHg RVSP 38.0 mmHg Findings Left Ventricle: Normal left ventricular systolic function. Normal left ventricular cavity size. Mild concentric left ventricular hypertrophy. Ejection fraction is visually estimated at 60 %. Tissue Doppler/Mitral Doppler indices are consistent with pseudonormalization with mildly elevated left atrial pressure (Stage II diastolic dysfunction). Right Ventricle: Normal right ventricular systolic function. Mild enlargement of right ventricle. Left Atrium: The left atrium is normal in size. Right Atrium: There is mild enlargement of right atrium. Mitral Valve: Mild mitral leaflet calcification. Mild mitral annular calcification. Trace mitral regurgitation. Aortic Valve: Aortic Valve Mechanical Prosthesis. Aortic valve Max velocity 2.98 m/sec. Max PG 35.60 mmHg. Mean PG 21.00 mmHg. Trace aortic valve regurgitation. Tricuspid Valve: Normal appearance of the tricuspid valve. Estimated peak PA systolic pressure 38 mmHg. There is mild tricuspid regurgitation. Pulmonic Valve: Pulmonic valve not well visualized. There is trace pulmonic regurgitation. Pericardium: Normal pericardium with no significant pericardial effusion. Aorta: Normal aortic root. IVC: Normal size and normal respiratory collapse consistent with normal right atrial pressure. Conclusions Normal left ventricular systolic function. Normal left ventricular cavity size. Mild concentric left ventricular hypertrophy. Ejection fraction is visually estimated at 60 %. Tissue Doppler/Mitral Doppler indices are consistent with pseudonormalization with mildly elevated left atrial pressure (Stage II diastolic dysfunction). Normal right ventricular systolic function. Mild enlargement of right ventricle. There is mild enlargement of right atrium. Mild mitral leaflet calcification. Mild mitral annular calcification. Trace mitral regurgitation. Aortic Valve Mechanical Prosthesis. Aortic valve Max velocity 2.98 m/sec. Max PG 35.60 mmHg. Mean PG 21.00 mmHg. Trace aortic valve regurgitation. Normal appearance of the tricuspid valve. Estimated peak PA systolic pressure 38 mmHg. There is mild tricuspid regurgitation. Pulmonic valve not well visualized. There is trace pulmonic regurgitation. Electronically Signed By: Lavelle Garcia 16-Jun-2018 16:15:42 -0800 Patient Name: LALY WRIGHT Study Date: 15-Jun-2018 [id number]
--- NOTE | 2018-06-16 16:51 | NUR ---
Discharge Pt ao x 4 and stable for discharge to home. Discharge packet given. No new prescriptions given. Education about discharge instructions provided. Pt stated understanding. electronic device monitor d/c'd. IV d/c'd, tip intact with no bruising or bleeding noted. All questions answered. All needs met. All belongings returned to Pt. Consist of: 1 pair of shoes, 1 set of clothes, 1 bag with paper works, 1 wallet, and 1 cellphone with 1 associate professor of chemistry.
[2018-06-16] MEDS: WARFARIN 3 MG TAB PO SCH (17:00)
== END 2018-06-16 17:37 | disposition home or self-care (01) | DRG 313 ==
LOC: E/R 05:54 → 6WM 09:20
PROVIDERS: ADMIT Internal Medicine; ATTEND Internal Medicine
DX: R07.9 Chest pain, unspecified (principal); I25.10 Atherosclerotic heart disease of native coronary artery without angina pectoris; Z95.1 Presence of aortocoronary bypass graft; Z95.5 Presence of coronary angioplasty implant and graft; I71.2 Thoracic aortic aneurysm, without rupture; E66.9 Obesity, unspecified; Z68.32 Body mass index [BMI] 32.0-32.9, adult; E78.5 Hyperlipidemia, unspecified; I10 Essential (primary) hypertension; Z79.01 Long term (current) use of anticoagulants; Z95.2 Presence of prosthetic heart valve; Z86.73 Personal history of transient ischemic attack (TIA), and cerebral infarction without residual deficits
CPT/HCPCS: 36415; 71045; 71275; 80053; 80061; 82550; 82553; 83036; 83690; 83735; 83880; 84100; 84484; 85025; 85610; 85730; 93306; 96360; 96361; J2270; J2405; J7030; Q9967

== ENCOUNTER 2018-11-05 15:17 | Observation (INO) | payer OTHER ==
[~2018-11-05] VITALS: Ht 172.7 cm; Wt 90.1 kg
[~2018-11-05 15:17] MED LIST changes: +ATOR-2 PO; -ATOR20TA38 PO; -COU10 PO; -ENOX100D2 SC; -LISI10TA2 PO; +WARF3TAB PO; +WARF4TAB64 PO
[2018-11-05] MEDS ORDERED: ONDANSETRON 4 MG INJ IV STA (16:16)
[2018-11-05] MEDS ORDERED: SOD CHLORIDE 0.9% 500 ML IV STA (16:16)
[2018-11-05] MEDS ORDERED: morphine 4 MG/ML VIAL IV STA (16:16)
[2018-11-05] MEDS ORDERED: SOD CHLORIDE 0.9% 100 ML ONE (16:45)
[2018-11-05] MEDS ORDERED: IOHEXOL 100 ML ONE (16:45)
--- NOTE | 2018-11-05 16:56 | ERD ---
ER Documentation Chief Complaint Chief Complaint PT reports CP dull in nature x 4 days HPI During the patient's encounter translation services were utilized Language: Kinyarwanda Source: In person This is a pleasant 58-year-old gentleman who presents with several days of chest pain. He describes the chest pain is dull in nature, slightly radiating to his back. He has a known history of thoracic aortic aneurysm that is greater than 5 cm. He denies any sudden onset of pain. No significant pleuritic pain. He does have some pain that is worse with rotational movement. He describes similar pain in the past when he was admitted several months ago. He denies fevers chills or cough. No lower extremity swelling. He takes Coumadin for a mechanical valve. ROS All systems reviewed and are negative except as per history of present illness. Medications Home Meds Reported Medications Warfarin Sodium* (Coumadin*) 3 Mg Tablet, 3 MG PO ALTERNATE WITH 4MG, TAB TAKE 3MG+4MG=7MG ONLY MON AND TUES 06/15/18 Warfarin Sodium* (Warfarin Sodium*) 4 Mg Tablet, 4 MG PO ALTERNATE WITH 3MG, TAB TAKE 4MG-DAILY,ONLY MON AND TUE-7MG (4+3) 06/15/18 Discontinued Reported Medications Atorvastatin* (Atorvastatin*) 80 Mg Tablet, 80 MG PO QHS, #30 TAB 06/15/18 Discontinued Scripts Amlodipine Besylate* (Amlodipine Besylate*) 10 Mg Tablet, 10 MG PO DAILY, #30 TAB Prov:KIRILL MONTGOMERY OUTSOLE SCHEDULER 03/02/18 Allergies Allergies: Coded Allergies: No Known Allergy (Unverified , 11/05/18) PMhx/Soc History of Surgery: Yes (Aortic valve replacement x20 years ago) Anesthesia Reaction: No Hx Neurological Disorder: No (RT MCA infarct with RT frontal lobe hemorrhage w/ LT sided residual) Hx Respiratory Disorders: No Hx Cardiac Disorders: Yes (HTN, Dyslipidemia, ascending aortic aneurysm) Hx Psychiatric Problems: No Hx Miscellaneous Medical Probl: No Hx Alcohol Use: Yes (beer x3days ago) Hx Substance Use: Yes (crystal meth x3days ago) Hx Tobacco Use: No Smoking Status: Never smoker FmHx Family History: No diabetes Physical Exam Vitals Vital Signs Date Temp Pulse Resp B/P (MAP) Pulse Ox O2 O2 Flow FiO2 Time Delivery Rate 11/05/18 98.6 69 16 129/73 100 Room Air 16:10 (91) 11/05/18 98.6 76 16 133/81 98 15:25 (98) Physical Exam General: Well developed, well nourished, no acute distress Head: Normocephalic, atraumatic. Eyes: Pupils equally reactive, EOM intact ENT: Moist mucous membranes Neck: Supple, no lymphadenopathy Respiratory: Lungs clear bilaterally, no distress Cardiovascular: RRR, no murmurs, rubs, or gallops Abdominal: Soft, non-tender, non-distended, no peritoneal signs : Deferred MSK: No edema, no unilateral swelling, 5/5 strength Neurologic: Alert and oriented, moving all extremities, normal speech, no focal weakness, no cerebellar signs Skin: No rash Psych: Normal mood Result Diagram: 11/05/18 1621 11/05/18 1621 Results 24 hrs Laboratory Tests Test 11/05/18 16:21 White Blood Count 5.1 10^3/ul Red Blood Count 4.82 10^6/ul Hemoglobin 14.5 g/dl Hematocrit 43.0 % Mean Corpuscular Volume 89.2 fl Mean Corpuscular Hemoglobin 30.1 pg Mean Corpuscular Hemoglobin Concent 33.7 g/dl Red Cell Distribution Width 12.2 % Platelet Count 172 10^3/UL Mean Platelet Volume 8.4 fl Immature Granulocytes % 0.200 % Neutrophils % 64.3 % Lymphocytes % 25.6 % Monocytes % 8.7 % Eosinophils % 0.8 % Basophils % 0.4 % Nucleated Red Blood Cells % 0.0 /100WBC Immature Granulocytes # 0.010 10^3/ul Neutrophils # 3.3 10^3/ul Lymphocytes # 1.3 10^3/ul Monocytes # 0.4 10^3/ul Eosinophils # 0.0 10^3/ul Basophils # 0.0 10^3/ul Nucleated Red Blood Cells # 0.0 10^3/ul Prothrombin Time 32.7 Sec Prothrombin Time Ratio 2.6 INR International Normalized Ratio 3.19 Activated Partial Thromboplast Time 39.6 Sec Sodium Level 139 mmol/L Potassium Level 4.2 mmol/L Chloride Level 105 mmol/L Carbon Dioxide Level 29 mmol/L Anion Gap 5 Blood Urea Nitrogen 13 mg/dl Creatinine 0.92 mg/dl Est Glomerular Filtrat Rate mL/min > 60 mL/min Glucose Level 124 mg/dl Calcium Level 9.0 mg/dl Troponin I < 0.012 ng/ml Current Medications Medications Dose Sig/Vincent Start Time Status Last (Trade) Ordered Route PRN Stop Time Admin Dose Reason Admin Sodium 500 ml @ Q1H STAT 11/05/18 DC 11/05/18 Chloride 500 mls/hr IV 16:16 16:35 11/05/18 17:15 Morphine 4 mg ONCE STAT 11/05/18 DC 11/05/18 Sulfate IV 16:16 16:35 (morphine) 11/05/18 16:18 Ondansetron 4 mg ONCE STAT 11/05/18 DC 11/05/18 HCl (Zofran IV 16:16 16:35 Inj) 11/05/18 16:18 IV Flush 10 ml STK-MED 11/05/18 DC (NS 10 ml) ONCE .ROUTE 16:45 11/05/18 16:46 Sodium 100 ml @ ud STK-MED 11/05/18 DC Chloride ONCE .ROUTE 16:45 11/05/18 16:46 Iohexol 100 ml @ ud STK-MED 11/05/18 DC ONCE .ROUTE 16:45 11/05/18 16:46 Aspirin 162 mg ONCE ONCE 11/05/18 (Aspirin) PO 18:30 11/05/18 18:31 Procedures/MDM EKG, MONITORS, & DIAGNOSTIC IMAGING: EKG: I reviewed and interpreted a 12-lead EKG. Rhythm: Normal sinus rhythm ST Changes: No contiguous ST segment elevations T waves: No contiguous T wave inversions Impression: No evidence of acute cardiac ischemia Repeat EKG: EKG: I reviewed and interpreted a 12-lead EKG. Rhythm: Normal sinus rhythm ST Changes: No contiguous ST segment elevations T waves: No contiguous T wave inversions Impression: No evidence of acute cardiac ischemia Chest x-ray: I reviewed and interpreted a 1 view of the chest Mediastinum: No enlargement Cardiac silhouette: No cardiomegaly Airspace: Clear lung cowan bilaterally without evidence of pneumothorax Bones: No evidence of fracture CTA Chest: IMPRESSION: Overall stable appearance of large ascending thoracic aortic aneurysm which is most pronounced in the anterior arch measuring up to 6 cm in diameter. There is suboptimal contrast opacification of the aorta and assessment for dissection cannot be performed. Suboptimal examination for pulmonary embolus due to motion which obscures the subsegmental arteries with no central filling defects. Surgical changes of the sternum and mediastinum with aortic valve replacement. Atherosclerotic disease. Mild cardiomegaly. Mild bibasilar atelectasis. RPTAT: AA LAB INTERPRETATION: * Neg trop MEDICAL DECISION MAKING: The patient's history, physical exam and clinical presentation is concerning for possible cardiogenic etiology and acute coronary syndrome. Additionally the patient has a known thoracic aortic aneurysm. I do not believe this presentation seems to be consistent with dissection, he does have some chest pain with back component. Given the known history of enlarged aorta I do believe a CT of the chest is necessary. Low concern for pulmonary embolism. No significant shortness of breath. Also consider possible muscular skeletal etiology. Based on the patient's clinical exam and history and risk factors, I have a much lower clinical concern for pulmonary embolism, acute aortic dissection, pneumothorax, pneumonia, cardiac tamponade HEART Score: Greater than 4 MACE Rate: 16.6% Shared Decision Making: We had a conversation regarding risk stratification, MACE rate, and the risks, benefits, alternatives of disposition planning options. Disposition planning: Admit ER COURSE: * Aspirin held until negative CT chest. * Pain medication provided * Small dose aspirin given after negative CT chest. He is chest pain-free. * While the CT of the chest cannot fully rule out dissection the patient does not have any pain out of proportion or migratory pain to suggest acute aortic dissection. Therefore I believe aspirin would be appropriate at this time. CONSULTATION: None DISPOSITION PLAN: Telemetry admission for management of chest pain to rule out acute coronary syndrome, serial enzymes, risk stratification and consideration of provocative testing CONSULTATION: Accepting care team and consultations: I discussed the current laboratory data, diagnostic imaging and emergency care provided. Admitting team: Dr. Borjas Admitting team indication: Insurance directed Departure Diagnosis: Primary Impression: Chest pain Chest pain type: unspecified Qualified Codes: R07.9 - Chest pain, unspecified Additional Impression: Thoracic aortic aneurysm Presence of rupture: without rupture Qualified Codes: I71.2 - Thoracic aortic aneurysm, without rupture Condition: ELIN Curtis MD Nov 05, 2018 16:56
[2018-11-05] MEDS ORDERED: ACETAMINOPHEN 325 MG TAB PO PRN (18:30)
[2018-11-05] MEDS ORDERED: ASPIRIN 81 MG TAB PO ONE (18:30)
[2018-11-05] MEDS ORDERED: ONDANSETRON 4 MG INJ IV PRN (18:30)
--- NOTE | 2018-11-05 19:02 | HP ---
Date/Time of Note Date/Time of Note DATE: 11/05/18 TIME: 18:54 Assessment/Plan VTE Prophylaxis Pharmacological prophylaxis: heparin Lines/Catheters IV Catheter Type (from Nrsg): Saline Lock Assessment/Plan Hospital Course 58 yo male with h/o AVR on coumadin and ascending aortic aneursym presents with atypical chest pain - Pain sounds pleuritic and manifested after smoking crystal meth. I suspect he has some pleuritis from this - ACS is possible, will cycle troponins to exclude. EKG nonischemic - PE excluded with CT-A and INR is 3 regardless Aortic aneurysm: - Stable size on imaging - Will follow up with his CV surgeon outpatinet h/o AVR: - Continue coumadin Result Diagram: 11/05/18 1621 11/05/18 1621 Results 24hrs Laboratory Tests Test 11/05/18 16:21 White Blood Count 5.1 Red Blood Count 4.82 Hemoglobin 14.5 Hematocrit 43.0 Mean Corpuscular Volume 89.2 Mean Corpuscular Hemoglobin 30.1 Mean Corpuscular Hemoglobin Concent 33.7 Red Cell Distribution Width 12.2 Platelet Count 172 Mean Platelet Volume 8.4 Immature Granulocytes % 0.200 Neutrophils % 64.3 Lymphocytes % 25.6 Monocytes % 8.7 Eosinophils % 0.8 Basophils % 0.4 Nucleated Red Blood Cells % 0.0 Immature Granulocytes # 0.010 Neutrophils # 3.3 Lymphocytes # 1.3 Monocytes # 0.4 Eosinophils # 0.0 Basophils # 0.0 Nucleated Red Blood Cells # 0.0 Prothrombin Time 32.7 #H Prothrombin Time Ratio 2.6 INR International Normalized Ratio 3.19 Activated Partial Thromboplast Time 39.6 H Sodium Level 139 Potassium Level 4.2 Chloride Level 105 Carbon Dioxide Level 29 Anion Gap 5 Blood Urea Nitrogen 13 Creatinine 0.92 Est Glomerular Filtrat Rate mL/min > 60 Glucose Level 124 Calcium Level 9.0 Troponin I < 0.012 HPI/ROS Admit Date/Time Admit Date/Time Hx of Present Illness 58 yo male with h/o AVR and aortic aneurysm with chest pain Patient states he smoked crystal meth last week. For the following days he has had pain in his right chest. Stabbing and very localized which occurs with breathing. No angina. pain very sharp and quick like a knife he says. Off and on. No pain with palpation. no cough, no fevers/chills. NO back pain ROS Constitutional: no complaints, improved Eyes: no complaints ENT: no complaints Respiratory: no complaints Cardiovascular: no complaints Gastrointestinal: no complaints Genitourinary: no complaints Musculoskeletal: no complaints Skin: no complaints Neurologic: no complaints Endocrine: no complaints Lymphatic: no complaints Psychological: no complaints, nl mood/affect Immunologic: no complaints PMH/Family/Social Past Medical History Medications Current Medications Ondansetron HCl (Zofran Inj) 4 mg ER BRIDGE PRN IV NAUSEA/VOMITING; Start 11/05/18 at 18:30; Stop 11/06/18 at 18:29 Acetaminophen (Tylenol Tab) 650 mg ER BRIDGE PRN PO .MILD PAIN 1-3 OR TEMP; Start 11/05/18 at 18:30; Stop 11/06/18 at 18:29 Coded Allergies: No Known Allergy (Unverified , 11/05/18) Past Surgical History AVR Family History Significant Family History: no pertinent family hx Social History Alcohol Use: none Smoking Status: Never smoker Drug Use: none Exam/Review of Systems Vital Signs Vitals Vital Signs Date Temp Pulse Resp B/P (MAP) Pulse Ox O2 O2 Flow FiO2 Time Delivery Rate 11/05/18 60 18 111/69 100 Room Air 18:28 (83) 11/05/18 98.6 16:10 Exam Constitutional: alert, oriented, well developed Psych: no complaints, nl mood/affect Head: normocephalic, atraumatic Eyes: nl conjunctiva, EOMI, nl lids, nl sclera, PERRL ENMT: nl external ears & nose, nl lips & teeth, nl nasal mucosa & septum Neck: supple, non-tender Respiratory: clear to auscultation, normal air movement Cardiovascular: regular rate and rhythm, nl pulses Gastrointestinal: soft, nl liver, spleen, non-tender Musculoskeletal: nl extremities to inspection Extremities: normal pulses Neurological: LOG HOOKER II-XII intact, nl mental status, nl speech, nl strength Skin: nl turgor; No rash or lesions Lymph: nl lymph nodes CESAR VAN MD Nov 05, 2018 19:02
[2018-11-05] MEDS ORDERED: HYDROCODONE/APAP (5/325) TAB PO PRN (19:30)
[2018-11-05] MEDS ORDERED: NACL 0.9% 3 ML SYG IV SCH (19:30)
[2018-11-05 20:40] VITALS: BP 143/85; PULSE 83; RESP 18
[2018-11-05 20:45] VITALS: PULSE 60
[2018-11-05 21:00] VITALS: Ht 172.7 cm; Wt 90.1 kg
[2018-11-05 23:06] VITALS: BP 152/79; PULSE 63; RESP 18
[2018-11-06] VITALS: PULSE 61
[2018-11-06 04:00] VITALS: BP 133/80; PULSE 56; PULSE 60; RESP 20
[2018-11-06 07:20] VITALS: BP 132/87; PULSE 72; RESP 20
[2018-11-06 08:07] VITALS: PULSE 65
--- NOTE | 2018-11-06 10:36 | PDOCDIS ---
Discharge Instructions DIAGNOSIS Discharge Diagnosis Chest pain CONDITION [id number] Patient Condition: [id number] Stable FOLLOW UP/APPOINTMENTS Follow-up Plan Make an appointment to see your endoscopy nurse. You should discuss whether you will need surgery to fix your aorta CESAR VAN MD Nov 06, 2018 10:36
[2018-11-06 11:25] VITALS: BP 150/83; PULSE 64; RESP 20
--- NOTE | 2018-11-06 13:29 | DS ---
Date/Time of Note Date/Time of Note DATE: 11/06/18 TIME: 13:29 Discharge Summary Admission/Discharge Info Admit Date/Time Nov 05, 2018 at 18:19 Discharge Date/Time Nov 06, 2018 at 12:30 Discharge Diagnosis Chest pain Patient Condition: Stable Hx of Present Illness 58 yo male with h/o AVR and aortic aneurysm with chest pain Patient states he smoked crystal meth last week. For the following days he has had pain in his right chest. Stabbing and very localized which occurs with breathing. No angina. pain very sharp and quick like a knife he says. Off and on. No pain with palpation. no cough, no fevers/chills. NO back pain Hospital Course 58 yo male with h/o AVR on coumadin and ascending aortic aneursym presents with atypical chest pain - Pain sounds pleuritic and manifested after smoking crystal meth. I suspect he has some pleuritis from this - ACS was excluded with negative troponins and EKG Aortic aneurysm: - Stable size on imaging - Will follow up with his CV surgeon outpatinet h/o AVR: - Continue coumadin Home Meds Reported Medications Warfarin Sodium* (Coumadin*) 3 Mg Tablet, 3 MG PO ALTERNATE WITH 4MG, TAB TAKE 3MG+4MG=7MG ONLY MON AND TUES 06/15/18 Warfarin Sodium* (Warfarin Sodium*) 4 Mg Tablet, 4 MG PO ALTERNATE WITH 3MG, TAB TAKE 4MG-DAILY,ONLY MON AND TUE-7MG (4+3) 06/15/18 Discontinued Reported Medications Atorvastatin* (Atorvastatin*) 80 Mg Tablet, 80 MG PO QHS, #30 TAB 06/15/18 Discontinued Scripts Amlodipine Besylate* (Amlodipine Besylate*) 10 Mg Tablet, 10 MG PO DAILY, #30 TAB Prov:KIRILL MONTGOMERY [employer] OPERATOR 03/02/18 Follow-up Plan 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 You should discuss whether you will need surgery to fix your aorta Primary Care Provider Mendel Desouza MD Pending Labs Laboratory Tests Test 11/05/18 16:21 11/05/18 22:13 11/06/18 06:00 White Blood Count 5.1 10^3/ul (4.8-10.8) Red Blood Count 4.82 10^6/ul (4.70-6.10) Hemoglobin 14.5 g/dl (14.0-18.0) Hematocrit 43.0 % (42.0-52.0) Mean Corpuscular 89.2 Volume fl (82.0-101.0) Mean Corpuscular 30.1 pg (29.0-33.0) Hemoglobin Mean Corpuscular 33.7 Hemoglobin Concent g/dl (32.0-37.0) Red Cell 12.2 % (11.5-14.5) Distribution Width Platelet Count 172 10^3/UL (140-415) Mean Platelet 8.4 fl (7.4-10.4) Volume Immature 0.200 Granulocytes % % (0.001-0.429) Neutrophils % 64.3 % (39.0-77.0) Lymphocytes % 25.6 % (15.0-51.0) Monocytes % 8.7 % (0.0-11.0) Eosinophils % 0.8 % (0.0-7.0) Basophils % 0.4 % (0.0-2.0) Nucleated Red Blood 0.0 Cells % /100WBC (0.0-0.0) Immature 0.010 Granulocytes # 10^3/ul (0.0-0.031) Neutrophils # 3.3 10^3/ul (1.6-7.5) Lymphocytes # 1.3 10^3/ul (0.8-2.9) Monocytes # 0.4 10^3/ul (0.3-0.9) Eosinophils # 0.0 10^3/ul (0.0-0.5) Basophils # 0.0 10^3/ul (0.0-0.1) Nucleated Red Blood 0.0 Cells # 10^3/ul (0.0-0.0) Prothrombin Time 32.7 28.2 Sec (11.9-14.9) Sec (11.9-14.9) Prothrombin Time 2.6 2.2 Ratio INR International 3.19 2.64 Normalized Ratio Activated 39.6 Partial Thromboplas Sec (23.0-35.0) t Time Sodium Level 139 mmol/L (135-144) Potassium Level 4.2 mmol/L (3.5-5.1) Chloride Level 105 mmol/L (97-110) Carbon Dioxide 29 mmol/L (21-31) Level Anion Gap 5 (5-13) Blood Urea 13 mg/dl (7-20) Nitrogen Creatinine 0.92 mg/dl (0.61-1.24) Est Glomerular > 60 mL/min (>60) Filtrat Rate mL/min Glucose Level 124 mg/dl (70-220) Calcium Level 9.0 mg/dl (8.4-10.2) Troponin I < 0.012 < 0.012 < 0.012 ng/ml (0.000-0.120) ng/ml (0.000-0.120 ng/ml (0.000-0.120 ) ) Creatine Kinase 83 IU/L (23-200) 69 IU/L (23-200) Creatine Kinase 1.2 1.2 Index Creatinine Kinase 0.97 0.83 MB (Mass) ng/ml (0.0-2.4) ng/ml (0.0-2.4) Hemoglobin A1c 5.2 % (0-5.9) CESAR VAN MD Nov 06, 2018 13:29
[2018-11-06] MEDS ORDERED: WARFARIN 3 MG TAB PO SCH (17:00)
== END 2018-11-06 12:30 | disposition home or self-care (01) ==
LOC: E/R 15:17 → TEL 18:19 → SUATTDRO 18:53
PROVIDERS: ADMIT Internal Medicine; ATTEND Internal Medicine
DX: R07.89 Other chest pain (principal); I71.2 Thoracic aortic aneurysm, without rupture; I10 Essential (primary) hypertension; E78.5 Hyperlipidemia, unspecified; Z79.01 Long term (current) use of anticoagulants; Z95.2 Presence of prosthetic heart valve
CPT/HCPCS: 36415; 71045; 71275; 80048; 82550; 82553; 83036; 84484; 85025; 85610; 85730; 93005; 96374; 96375; J2270; J2405; J7040; Q9967; Z7500; Z7502; Z7610; G0378

== ENCOUNTER 2018-11-07 20:21 | Emergency (ER) | payer OTHER ==
[~2018-11-07] VITALS: Ht 172.7 cm; Wt 89.0 kg
[~2018-11-07 20:21] MED LIST changes: -AMLO-147 PO; -ATOR-2 PO
[2018-11-07 20:32] VITALS: Ht 172.7 cm; Wt 89.0 kg
[2018-11-07] MEDS ORDERED: ONDANSETRON 4 MG INJ IV STA (21:37)
[2018-11-07] MEDS ORDERED: morphine 4 MG/ML VIAL IV STA (21:37)
[2018-11-08 01:01] VITALS: BP 135/85; PULSE 85; RESP 18
--- NOTE | 2018-12-02 02:20 | ERD ---
ER Documentation Chief Complaint Chief Complaint RIGHT SIDED CP X 3 DAYS HPI Is a very pleasant 52 female with a chest pain for the past 3 days. Pain mild to moderate intensity no exacerbating living factors. No shortness breath. No nausea no vomiting fevers no chills no palpitations. No other current complaints. ROS All systems reviewed and are negative except as per history of present illness. Medications Home Meds Reported Medications Warfarin Sodium* (Coumadin*) 3 Mg Tablet, 3 MG PO ALTERNATE WITH 4MG, TAB TAKE 3MG+4MG=7MG ONLY MON AND TUES 06/15/18 Warfarin Sodium* (Warfarin Sodium*) 4 Mg Tablet, 4 MG PO ALTERNATE WITH 3MG, TAB TAKE 4MG-DAILY,ONLY MON AND TUE-7MG (4+3) 06/15/18 Allergies Allergies: Coded Allergies: No Known Allergy (Unverified , 11/05/18) PMhx/Soc History of Surgery: Yes (LEFT JAW FRACTURE, AORTIC VALVULOPLASTY) Anesthesia Reaction: No Hx Neurological Disorder: Yes (STROKE) Hx Respiratory Disorders: No Hx Psychiatric Problems: No Hx Miscellaneous Medical Probl: No Hx Alcohol Use: Yes Hx Substance Use: Yes Hx Tobacco Use: No Smoking Status: Never smoker Physical Exam Physical Exam Const: No acute distress Head: Atraumatic Eyes: Normal Conjunctiva ENT: Normal External Ears, Nose and Mouth. Neck: Full range of motion. No meningismus. Resp: Clear to auscultation bilaterally Cardio: Regular rate and rhythm, no murmurs Abd: Soft, non tender, non distended. Normal bowel sounds Skin: No petechiae or rashes Back: No midline or flank tenderness Ext: No cyanosis, or edema Neur: Awake and alert Psych: Normal Mood and Affect Results 24 hrs Laboratory Tests Test 11/07/18 22:19 White Blood Count 5.2 10^3/ul Red Blood Count 4.87 10^6/ul Hemoglobin 14.7 g/dl Hematocrit 43.9 % Mean Corpuscular Volume 90.1 fl Mean Corpuscular Hemoglobin 30.2 pg Mean Corpuscular Hemoglobin Concent 33.5 g/dl Red Cell Distribution Width 12.5 % Platelet Count 153 10^3/UL Mean Platelet Volume 8.5 fl Immature Granulocytes % 0.200 % Neutrophils % 58.0 % Lymphocytes % 32.3 % Monocytes % 8.1 % Eosinophils % 1.0 % Basophils % 0.4 % Nucleated Red Blood Cells % 0.0 /100WBC Immature Granulocytes # 0.010 10^3/ul Neutrophils # 3.0 10^3/ul Lymphocytes # 1.7 10^3/ul Monocytes # 0.4 10^3/ul Eosinophils # 0.1 10^3/ul Basophils # 0.0 10^3/ul Nucleated Red Blood Cells # 0.0 10^3/ul Prothrombin Time 19.9 Sec Prothrombin Time Ratio 1.6 INR International Normalized Ratio 1.68 Activated Partial Thromboplast Time 30.5 Sec Sodium Level 140 mmol/L Potassium Level 4.2 mmol/L Chloride Level 102 mmol/L Carbon Dioxide Level 32 mmol/L Anion Gap 6 Blood Urea Nitrogen 15 mg/dl Creatinine 0.76 mg/dl Est Glomerular Filtrat Rate mL/min > 60 mL/min Glucose Level 102 mg/dl Calcium Level 9.0 mg/dl Troponin I < 0.012 ng/ml B-Type Natriuretic Peptide 54 PG/ML Current Medications Medications Dose Sig/Vincent Start Time Status Last (Trade) Ordered Route PRN Stop Time Admin Dose Reason Admin Morphine 4 mg ONCE STAT 11/07/18 DC 11/07/18 Sulfate IV 21:37 22:28 (morphine) 11/07/18 21:45 Ondansetron 4 mg ONCE STAT 11/07/18 DC 11/07/18 HCl (Zofran IV 21:37 22:28 Inj) 11/07/18 21:45 Procedures/MDM EKG: Rate/Rhythm: [Normal Sinus Rhythm] QRS, ST, T-waves: [No changes consistent w/ acute ischemia] Impression: [No evidence of ischemia or arrhythmia] Chest X-ray 1V Interpreted by me: Soft Tissue: No acute abnormalities Bones: No acute abnormalities Mediastinum/Cardiac Silhouette/Lungs: [No acute abnormalities] Patient's symptoms are concerning for cardiac cause will require inpatient workup and continuous monitoring. Further w/u for ischemia, arrhythmia, PE or dissection will be deferred to the inpatient team. Accepting Care Team: Current data and ongoing care discussed. Time: 2 AM Primary Provider: Hospitalist Consulting: [XOXOXO] Outstanding Data: none Departure Diagnosis: Primary Impression: Chest pain Chest pain type: unspecified Qualified Codes: R07.9 - Chest pain, unspecified Condition: Serious Patient Instructions: Chest Pain, Uncertain Cause Referrals: MANDY SON MD (PCP) MARY ALICE SIFUENTES Dec 02, 2018 02:20
== END 2018-11-08 01:08 | disposition home or self-care (01) ==
LOC: E/R 20:21
DX: R07.9 Chest pain, unspecified (principal)
CPT/HCPCS: 71045; 80048; 83880; 84484; 85025; 85610; 85730; 93005; J2270; J2405; 36415; 96374; 96375

== ENCOUNTER 2018-11-30 23:50 | Emergency (ER) | payer SELFPAY ==
[~2018-11-30] VITALS: Ht 172.7 cm; Wt 93.6 kg
[2018-11-30 23:53] VITALS: BP 139/67; PULSE 100; RESP 20; Ht 172.7 cm; Wt 93.6 kg
== END 2018-12-01 00:45 | disposition left against medical advice (07) ==
LOC: E/R 23:50
DX: Z53.21 Procedure and treatment not carried out due to patient leaving prior to being seen by health care provider (principal)
CPT/HCPCS: 93005